=== PATIENT | male | born 1990 | race Caucasian/White ===

== ENCOUNTER 2019-10-21 09:59 | Outpatient (CLI) | payer BC, SELFPAY ==
[2019-10-21 11:31] LABS: Blood Urea Nitrogen 18 mg/dL (9-20); Calcium 9.3 mg/dL (8.4-10.2); Carbon Dioxide 28 mmol/L (22-30); Chloride 99 mmol/L (98-107); Estimated Glomerular Filt Rate > 60; Glucose 88 mg/dL (75-110); Potassium 3.8 mmol/L (3.4-5.0); Sodium 141 mmol/L (137-145)
== END 2019-10-21 10:00 | disposition home or self-care (01) ==
PROVIDERS: PCP Family Medicine
DX: I42.9 Cardiomyopathy, unspecified (principal)
CPT/HCPCS: 36415; 80048

== ENCOUNTER 2021-06-21 07:22 | Emergency (ER) | payer BC, SELFPAY ==
--- NOTE | ~2021-06-21 | CT_ITS ---
EXAMINATION: CT abdomen pelvis wo con DATE: 06/21/2021 07:52 INDICATION: Right flank pain TECHNIQUE: Computed tomography (CT) of the abdomen and pelvis was performed without intravenous contr ast. The dose-length product (DLP) was 249.36 mGy-cm. Automated exposure control and iterative recons truction technique were employed. COMPARISON: None FINDINGS: The lung bases are clear. The heart size is normal. The liver, spleen, pancreas, gallbladde r, and adrenal glands are normal. There is a 3 mm nonobstructing stone of the right mid kidney. The l eft kidney is unremarkable. There appears to be mild stranding surrounding the right ureter. A 1 mm s tone is present in the urinary bladder near the right ureterovesicular junction. No pathologically en larged abdominal or pelvic lymph nodes are identified. There is no free intraperitoneal gas or eviden ce of bowel obstruction. There is a tiny fat-containing umbilical hernia. Changes of appendectomy are noted. IMPRESSION: 1. Punctate stone in the urinary bladder with subtle fat stranding surrounding the right ureter which could reflect recent passage of right-sided stone. 2. Nonobstructing right nephrolithiasis. Reviewed, dictated and finalized at location A.
--- NOTE | 2021-06-21 07:33 | ED.ABDPAIN ---
HPI - Abdominal Pain General Chief Complaint: Back Pain/Injury Stated Complaint: R FLANK PAIN Time Seen by Provider: 06/21/21 07:31 Source: patient Mode of arrival: ambulatory Limitations: no limitations History of Present Illness HPI narrative: Patient is a 31-year-old male complaining of right flank pain, 9 out of 10, sharp, nonradiating started this morning. Patient denies any chest pain, shortness of breath, abdominal pain, nausea, vomiting, diarrhea, urinary symptoms, fever or chills Related Data Home Medications Medication Instructions Recorded Confirmed cetirizine 10 mg tablet 10 mg PO DAILY 09/24/19 06/01/21 multivitamin 1 tablet PO DAILY 09/24/19 06/01/21 metoprolol succinate 100 mg 200 mg PO DAILY tablet 10/05/20 06/01/21 tablet,extended release 24 hr olopatadine 0.6 % nasal spray 2 spray INTRANASAL Q12H 06/01/21 06/01/21 Allergies Allergy/AdvReac Type Severity Reaction Status Date / Time No Known Allergies Allergy Mild Verified 06/01/21 14:57 Review of Systems Review of Systems: All systems reviewed & are unremarkable except as noted in HPI and below Constitutional: Constitutional: Denies body ache(s), Denies chills, Denies excessive sweating, Denies fatigue, Denies fever(s), Denies headache(s), Denies lethargy, Denies malaise, Denies weakness and Denies weight loss Eyes: Eyes: Denies blurry vision, Denies change in vision and Denies loss of vision ENT: Denies dizziness, Denies ear discharge, Denies headache(s), Denies lip swelling, Denies epistaxis, Denies nasal congestion, Denies neck pain, Denies throat swelling and Denies tongue swelling Cardiovascular: Cardiovascular: Denies chest pain, Denies chest pain at rest, Denies chest pain with activity, Denies diaphoresis, Denies rapid heart rate, Denies edema, Denies irregular heart rhythm, Denies lightheadedness, Denies palpitations, Denies dyspnea and Denies dyspnea on exertion Respiratory: Respiratory: Denies chest congestion, Denies cough, Denies hemoptysis, Denies dyspnea and Denies dyspnea on exertion Gastrointestinal: Gastrointestinal: Denies abdominal pain, Denies melena, Denies hematochezia, Denies diarrhea, Denies nausea, Denies vomiting and Denies hematemesis Musculoskeletal: Musculoskeletal: Denies abnormal gait, Denies deformity, Denies joint swelling, Denies limited range of motion, Denies neck pain and Denies numbness Neurologic: Denies Abnormal speech present, Denies abnormal gait, Denies confusion, Denies dizziness, Denies headache(s), Denies focal weakness, Denies loss of vision, Denies numbness, Denies Other visual disturbances, Denies Sensory deficit (Neuro) and Denies weakness Psychiatric: Psychiatric: Denies confusion, Denies depression, Denies auditory hallucinations, Denies homicidal ideation and Denies suicidal ideation Endocrine: Endocrine: Denies cold intolerance, Denies excessive sweating, Denies fatigue, Denies heat intolerance and Denies palpitations Hematologic/Lymphatic: Hematologic/Lymphatic: Denies easy bleeding and Denies easy bruising Allergic/Immunologic: Allergic/Immunologic: Denies lip swelling, Denies throat swelling and Denies tongue swelling PMFSH Past Medical History Medical History Chest pain Essential hypertension LBBB (left bundle branch block) Migraines New onset left bundle branch block (LBBB) Family History Family History Father Diabetes mellitus Mother Family history of malignant neoplasm of breast in first degree relative Social History Social History Smoking status: Never smoker Second hand tobacco smoke exposure: No Alcohol intake: never Substance use: never Substance use type: does not use Gender identity (if verbalized by the patient): Male Exam Const: General: cooperative, healthy appearing, comfortable, well d
[2021-06-21] MEDS: SODIUM CHLORIDE 0.9% IV 1,000 ML 999 ML IV CONT (07:41)
[2021-06-21] MEDS: HYDROmorphone HCL INJ (*CRX) 1 MG/ML SYR 0.5 MG IV PUSH ×2 (07:42→08:25)
[2021-06-21] MEDS: PROMETHAZINE HCL 25 MG/ML AMPUL 12.5 MG IV PUSH (07:42)
[2021-06-21 07:47] VITALS: BP 117/76; PULSE 80; RESP 14; TEMP 36.7; O2SAT 100
[2021-06-21 07:50] LABS: Basophils Absolute Auto 0.1 K/mm3 (0.0-0.1); Basophils Percent Auto 1.4 % (0.2-1.2); Eosinophils Absolute Auto 0.3 K/mm3 (0-0.3); Eosinophils Percent Auto 3.1 % (0-4.4); Hematocrit 46.7 % (42.0-52.0); Hemoglobin 16.6 g/dL (14.0-18.0); Immature Granulocyte Absolute 0.04 K/mm3 (0.00-0.031); Immature Granulocyte Percent A 0.4 % (0-0.5); Lymphocytes Absolute Auto 4.39 K/mm3 (0.9-3.2); Lymphocytes Percent Auto 47.1 % (18.3-44.2); Mean Corpuscular HGB Conc 35.5 g/dl (32-36); Mean Corpuscular Hemoglobin 30.5 pg (26-34); Mean Corpuscular Volume 85.8 fl (80-100); Mean Platelet Volume 8.8 fl (7.4-10.4); Monocytes Percent Auto 10.9 % (2.6-8.5); Neutrophils Absolute Auto 3.5 K/mm3 (1.3-6.7); Neutrophils Percent Auto 37.1 % (45.5-73.1); Platelet Count Result 279 k/mm3 (150-375); Red Blood Count 5.44 M/mm3 (4.6-6.20); Red Cell Distribution Width 12.9 % (11.5-14.5); White Blood Count 9.3 K/mm3 (4.5-10.0)
[2021-06-21 08:36] LABS: Alanine Aminotransferase 30 U/L (4-50); Alkaline Phosphatase 60 U/L (38-126); Anion Gap 11 mmol/L (8-16); Aspartate Amino Transferase 29 U/L (17-59); Bilirubin,Total 0.9 mg/dL (0.2-1.3); Blood Urea Nitrogen 22 mg/dL (9-20); Calcium 9.2 mg/dL (8.4-10.2); Carbon Dioxide 17 mmol/L (22-30); Chloride 111 mmol/L (98-107); Estimated CRCL calculation 93 ml/min; Estimated Glomerular Filt Rate > 60; Glucose 136 mg/dL (65-110); Lipase 101 U/L (23-300); Potassium 4.4 mmol/L (3.4-5.0); Sodium 139 mmol/L (137-145)
[2021-06-21 08:45] VITALS: BP 139/83; PULSE 75; RESP 14; O2SAT 99
[2021-06-21 09:43] LABS: Add Urine Microscopic? YES; Appearance Urine Cloudy (Clear); Bacteria Urine Trace /hpf; Bilirubin Urine Negative (Negative); Blood Urine Negative (Negative); Color Urine Yellow (Yellow); Glucose Urine UA Negative (Negative); Ketones Urine Negative (Negative); Leukocyte Esterase Ur Negative LEU/UL (Negative); Mucus Urine Few /lpf; Nitrate Urine Negative (Negative); Protein Urine Negative (Negative); Urobilinogen Urine Negative mg/dL (<2.0); WBC Urine 0-3 /hpf
[2021-06-21 09:45] VITALS: BP 122/69; PULSE 76; RESP 14; O2SAT 98
[2021-06-21 09:53] LABS: Specific Grav Ur 1.031 (1.001-1.035)
[2021-06-21 10:54] VITALS: BP 115/69; PULSE 79; RESP 14; O2SAT 100
== END 2021-06-21 10:58 | disposition home or self-care (01) ==
PROVIDERS: Emergency Provider Emergency Medicine; PCP Family Medicine
DX: N20.2 Calculus of kidney with calculus of ureter (principal); I10 Essential (primary) hypertension
CPT/HCPCS: 36415; 74176; 80053; 81001; 83690; 85025; 96361; 96374; 96375; 96376; 99284; J1170; J2550; J7030

== ENCOUNTER 2022-02-13 00:58 | Emergency (ER) | payer BC, SELFPAY ==
--- NOTE | ~2022-02-13 | CT_ITS ---
EXAMINATION: CT abdomen pelvis wo con DATE: 02/13/2022 02:04 INDICATION: Right flank pain. Hematuria. Low abdominal pain. TECHNIQUE: Computed tomography (CT) of the abdomen and pelvis was performed without intravenous contr ast. Automated exposure control and iterative reconstruction technique were employed. The dose-length product was 588.72 mGy-cm. COMPARISON: CT abdomen and pelvis 06/21/2021 FINDINGS: The visualized portions of the lung bases demonstrate mild atelectasis. No pleural effusion . The heart size is normal. No pericardial effusion. The liver, gallbladder, spleen, pancreas, adrena l glands, and kidneys are normal. There is a 2 mm stone in distal right ureter. There is diverticulos is of the colon without evidence of diverticulitis. There are changes of appendectomy. There are no p athologically enlarged lymph nodes. There is no free intraperitoneal fluid. There is mild lumbar spon dylosis. IMPRESSION: 1. 2 mm stone in distal right ureter. No hydronephrosis. Reviewed, dictated and finalized at location A.
[2022-02-13 01:01] VITALS: BP 126/85; PULSE 74; RESP 16; TEMP 36.4; O2SAT 99
[2022-02-13 01:24] LABS: Basophils Absolute Auto 0.1 K/mm3 (0.0-0.1); Basophils Percent Auto 1.3 % (0.2-1.2); Eosinophils Absolute Auto 0.3 K/mm3 (0-0.3); Eosinophils Percent Auto 3.1 % (0-4.4); Hematocrit 46.8 % (42.0-52.0); Hemoglobin 16.3 g/dL (14.0-18.0); Immature Granulocyte Absolute 0.03 K/mm3 (0.00-0.031); Immature Granulocyte Percent A 0.4 % (0-0.5); Lymphocytes Percent Auto 48.5 % (18.3-44.2); Mean Corpuscular HGB Conc 34.8 g/dl (32-36); Mean Corpuscular Hemoglobin 30.1 pg (26-34); Mean Corpuscular Volume 86.3 fl (80-100); Monocytes Absolute Auto 0.7 K/mm3 (0.1-0.6); Monocytes Percent Auto 8.5 % (2.6-8.5); Neutrophils Absolute Auto 3.2 K/mm3 (1.3-6.7); Neutrophils Percent Auto 38.2 % (45.5-73.1); Platelet Count Result 247 k/mm3 (150-375); Red Blood Count 5.42 M/mm3 (4.6-6.20); Red Cell Distribution Width 12.8 % (11.5-14.5); White Blood Count 8.5 K/mm3 (4.5-10.0)
[2022-02-13 01:26] LABS: Alanine Aminotransferase 30 U/L (6-50); Albumin Level 4.3 g/dL (3.5-5.1); Alkaline Phosphatase 73 U/L (38-126); Anion Gap 8 mmol/L (8-16); Aspartate Amino Transferase 31 U/L (17-59); Bilirubin,Total 1.1 mg/dL (0.2-1.3); Blood Urea Nitrogen 22 mg/dL (9-20); Calcium 8.8 mg/dL (8.4-10.2); Carbon Dioxide 21 mmol/L (22-30); Chloride 106 mmol/L (98-107); Estimated CRCL calculation 114 ml/min; Estimated Glomerular Filt Rate > 60; Glucose 155 mg/dL (65-110); Potassium 4.1 mmol/L (3.4-5.0); Sodium 135 mmol/L (137-145)
[2022-02-13 01:28] LABS: Appearance Urine Clear (Clear); Bilirubin Urine 1+ (Negative); Blood Urine 3+ (Negative); Color Urine Yellow (Yellow); Glucose Urine UA Negative (Negative); Ketones Urine Trace mg/dL (Negative); Leukocyte Esterase Ur Negative LEU/UL (Negative); Nitrate Urine Negative (Negative); Protein Urine Trace mg/dL (Negative); Specific Grav Ur >= 1.030 (1.001-1.035); Urobilinogen Urine 0.2 mg/dL (<2.0); pH Urine 5.5 (5.0-9.0)
[2022-02-13 01:34] LABS: Bacteria Urine Trace /hpf; Mucus Urine Few /lpf; RBC Urine >75 /hpf (0-2); WBC Urine 0-3 /hpf
[2022-02-13 01:35] LABS: Add Urine Microscopic? YES
--- NOTE | 2022-02-13 02:47 | ED.ABDPAIN ---
HPI - Abdominal Pain General Chief Complaint: Abdominal Pain <ELIDIA Marr Last Filed: 02/13/22 04:13> Stated Complaint: kidney stone <ELIDIA Marr Last Filed: 02/13/22 04:13> Time Seen by Provider: 02/13/22 01:51 <ELIDIA Marr Last Filed: 02/13/22 04:13> History of Present Illness HPI narrative: Patient is a 31-year-old male with a history of kidney stones here for evaluation of right-sided flank pain and right groin pain with hematuria tonight. Patient tells me he has a history of kidney stones and that this feels very similar. Has not taken any medications for his pain. Denies nausea or vomiting, fevers or chills. <ELIDIA Marr Last Filed: 02/13/22 04:13> Related Data Home Medications: Home Medications Medication Instructions Recorded Confirmed cetirizine 10 mg tablet (Zyrtec) 10 mg PO DAILY 09/24/19 06/29/21 multivitamin 1 tablet PO DAILY 09/24/19 06/29/21 metoprolol succinate 100 mg 200 mg PO DAILY 10/05/20 06/29/21 tablet,extended release 24 hr olopatadine 0.6 % nasal spray 2 spray intranasal Q12H 06/01/21 06/29/21 <ELIDIA Marr Last Filed: 02/13/22 04:13> Allergies/Adverse Reactions: Allergies Allergy/AdvReac Type Severity Reaction Status Date / Time No Known Allergies Allergy Mild Verified 02/13/22 01:03 <ELIDIA Marr Last Filed: 02/13/22 04:13> Review of Systems Review of Systems: Gen: Denies fevers or chills Eyes: Denies eye pain or visual change ENT: Denies congestion Respiratory: Denies shortness of breath or cough CV: Denies chest pain or palpitations GI: Denies abdominal pain nausea, emesis or diarrhea reports hematuria. Denies burning, urgency, frequency Musculoskeletal: Reports right flank pain and groin pain Neuro: Denies numbness, tingling, weakness or focal weakness Skin: Denies rash Except as documented, all other systems reviewed and negative <Marisabel Wagner PA-C - Last Filed: 02/13/22 04:13> [facility] Past Medical History Medical History: Medical History Chest pain Essential hypertension LBBB (left bundle branch block) Migraines New onset left bundle branch block (LBBB) <Marisabel Wagner PA-C - Last Filed: 02/13/22 04:13> Family History Family History: Family History Father Diabetes mellitus Mother Family history of malignant neoplasm of breast in first degree relative <Marisabel Wagner PA-C - Last Filed: 02/13/22 04:13> Social History Social History: Social History (Updated 06/29/21 @ 14:57 by Lynette Jo MA) Smoking status: Never smoker Second hand tobacco smoke exposure: No Alcohol intake: never Substance use: never Substance use type: does not use Gender identity (if verbalized by the patient): Male <Mraisabel Wagner PA-C - Last Filed: 02/13/22 04:13> Exam Narrative: APPEARANCE: Well appearing, no pain in distress, well-nourished. Head: Normocephalic and atraumatic. EYES: PERRLA/EOMI, conjunctivae clear NOSE: No nasal drainage EARS: External ear normal in appearance THROAT: Oropharynx is clear. Mucous membranes are moist. NECK: Supple. No adenopathy, no masses. RESPIRATORY: Airway patent, respirations nonlabored. Clear to auscultation bilaterally, no rales, rhonchi, wheezing. CARDIOVASCULAR: Regular rate and rhythm without murmurs, rubs, or gallops. ABDOMINAL: Normoactive bowel sounds. Soft, nontender, nondistended. No rebound tenderness or guarding. MUSCULOSKELETAL: Extremities are warm and well-perfused. Moves all extremities well. No edema. NEURO: Normal speech. No focal neurologic deficits. SKIN: Skin is warm and dry. No rashes. PSYCHIATRIC: Normal affect/mood. <Marisabel Wagner PA-C - Last Filed: 02/13/22 04:13> Course [employer]ER/PA Physician
[2022-02-13] MEDS: KETOROLAC 30 MG/ML VIAL (*BKC) IM (03:02)
[2022-02-13 03:53] VITALS: BP 125/86; PULSE 72; RESP 18; O2SAT 100
== END 2022-02-13 03:54 | disposition home or self-care (01) ==
PROVIDERS: Emergency Provider Emergency Medicine; PCP Family Medicine
DX: N20.0 Calculus of kidney (principal); I10 Essential (primary) hypertension
CPT/HCPCS: 36415; 74176; 80053; 81001; 85025; 96372; 99284; J1885

== ENCOUNTER 2022-02-26 07:43 | Day surgery (SDC) | payer BC, SELFPAY ==
[2022-02-26] VITALS (16 sets, daily range): BP systolic 104–153; BP diastolic 54–91; PULSE 76–110; RESP 14–23; TEMP 36.6–36.9; O2SAT 96–100
--- NOTE | ~2022-02-26 | XR_ITS ---
EXAMINATION: XR retrograde pyelo w/stent RT DATE: 02/26/2022 13:00 CDT INDICATION: STONE RIGHT STONE EXT/RETRO/STENT PLACEMENT . TECHNIQUE: 17 fluoroscopic images of the abdomen and pelvis were obtained during right stone extracti on, retrograde pyelography, and stent placement performed by the surgeon. I was not present in the op erating room. Fluoroscopy exposure time was 24.3 seconds. Cumulative dose was 0.77191 mGy2. COMPARISON: CT abdomen pelvis 02/26/2022. FINDINGS: Punctate 3 mm calcification in the right pelvis may reflect obstructing stone. Contrast fills a mildl y dilated right collecting system. The inferior portion of a ureteral stent is present in the final i mage, in good position. IMPRESSION: Fluoroscopic documentation of stone extraction, retrograde pyelography, and stent placement. Please r efer to the operative note for complete procedural details. Reviewed, dictated and finalized at location K. IMPRESSION: Fluoroscopic documentation of stone extraction, retrograde pyelography, and dorene nt placement. Please refer to the operative note for complete procedural detail s.
--- NOTE | ~2022-02-26 | CT_ITS ---
EXAMINATION: CT abdomen pelvis wo con DATE: 02/26/2022 08:11 INDICATION: Right flank pain TECHNIQUE: Computed tomography (CT) of the abdomen and pelvis was performed without intravenous contr ast. The dose-length product (DLP) was 234.64 mGy-cm. Automated exposure control and iterative recons truction technique were employed. COMPARISON: 02/13/2022 FINDINGS: The lung bases are clear. The heart size is normal. The liver, spleen, pancreas, gallbladde r, and adrenal glands are normal. There is a 3 mm stone at the right ureterovesicular junction. The k idneys are unremarkable. No pathologically enlarged abdominal or pelvic lymph nodes are identified. T here is no free intraperitoneal gas or evidence of bowel obstruction. Colonic diverticulosis is prese nt without evidence of diverticulitis. There is a small umbilical hernia containing fat IMPRESSION: 1. 3 mm stone at the right ureterovesicular junction. Reviewed, dictated and finalized at location B.
[2022-02-26 07:59] LABS: Basophils Absolute Auto 0.1 K/mm3 (0.0-0.1); Basophils Percent Auto 1.5 % (0.2-1.2); Eosinophils Absolute Auto 0.2 K/mm3 (0-0.3); Eosinophils Percent Auto 2.7 % (0-4.4); Hematocrit 48.2 % (42.0-52.0); Hemoglobin 17.5 g/dL (14.0-18.0); Immature Granulocyte Absolute 0.03 K/mm3 (0.00-0.031); Immature Granulocyte Percent A 0.3 % (0-0.5); Lymphocytes Absolute Auto 4.09 K/mm3 (0.9-3.2); Lymphocytes Percent Auto 46.5 % (18.3-44.2); Mean Corpuscular HGB Conc 36.3 g/dl (32-36); Mean Corpuscular Hemoglobin 30.6 pg (26-34); Mean Corpuscular Volume 84.4 fl (80-100); Mean Platelet Volume 8.6 fl (7.4-10.4); Monocytes Absolute Auto 0.9 K/mm3 (0.1-0.6); Monocytes Percent Auto 10.3 % (2.6-8.5); Neutrophils Absolute Auto 3.4 K/mm3 (1.3-6.7); Neutrophils Percent Auto 38.7 % (45.5-73.1); Platelet Count Result 277 k/mm3 (150-375); Red Blood Count 5.71 M/mm3 (4.6-6.20); Red Cell Distribution Width 12.6 % (11.5-14.5); White Blood Count 8.8 K/mm3 (4.5-10.0)
[2022-02-26 08:00] LABS: Add Urine Microscopic? YES; Appearance Urine Slightly Cloudy (Clear); Bilirubin Urine Negative (Negative); Blood Urine 3+ (Negative); Color Urine Yellow (Yellow); Glucose Urine UA Negative (Negative); Ketones Urine Negative (Negative); Leukocyte Esterase Ur Negative LEU/UL (Negative); Nitrate Urine Negative (Negative); Protein Urine Negative (Negative); Urobilinogen Urine 0.2 mg/dL (<2.0); pH Urine 5.5 (5.0-9.0)
[2022-02-26 08:08] LABS: Bacteria Urine Trace /hpf; RBC Urine 21-50 /hpf (0-2); WBC Urine 0-3 /hpf
[2022-02-26] MEDS: MORPHINE SULFATE (*CRX) 4 MG/ML INJ IV PUSH ×2 (08:34→09:32)
[2022-02-26 08:39] LABS: Alanine Aminotransferase 38 U/L (6-50); Albumin Level 4.9 g/dL (3.5-5.1); Alkaline Phosphatase 62 U/L (38-126); Anion Gap 9 mmol/L (8-16); Aspartate Amino Transferase 48 U/L (17-59); Bilirubin,Total 1.9 mg/dL (0.2-1.3); Blood Urea Nitrogen 19 mg/dL (9-20); Calcium 8.7 mg/dL (8.4-10.2); Carbon Dioxide 22 mmol/L (22-30); Chloride 103 mmol/L (98-107); Estimated Glomerular Filt Rate > 60; Glucose 133 mg/dL (65-110); Potassium 4.5 mmol/L (3.4-5.0); Sodium 134 mmol/L (137-145)
[2022-02-26] MEDS: ONDANSETRON INJ 4 MG/2 ML VIAL IV PUSH ×2 (08:58→15:34)
--- NOTE | 2022-02-26 09:03 | ED.BACK ---
HPI - Back Pain/Injury General Chief Complaint: Back Pain/Injury Stated Complaint: right flank pain Time Seen by Provider: 02/26/22 07:50 History of Present Illness HPI Narrative: 31-year-old male with history of kidney stones presents stating that he feels like he is having another kidney stone, he is endorsing right flank pain radiating to the lower abdomen that started several hours ago, he has been feeling nauseous. Denies any pain on urination but states that he has been coming more frequently, had a recent visit here a week ago for the same sort of symptoms. No fevers or chills. Related Data Home Medications Medication Instructions Recorded Confirmed cetirizine 10 mg tablet (Zyrtec) 10 mg PO DAILY 09/24/19 06/29/21 multivitamin 1 tablet PO DAILY 09/24/19 06/29/21 metoprolol succinate 100 mg 200 mg PO DAILY 10/05/20 06/29/21 tablet,extended release 24 hr olopatadine 0.6 % nasal spray 2 spray intranasal Q12H 06/01/21 06/29/21 Allergies Allergy/AdvReac Type Severity Reaction Status Date / Time No Known Allergies Allergy Mild Verified 02/13/22 01:03 Review of Systems Review of Systems: CONST: No fever. HEENT: No sore throat C/V: No chest pain RESP: No cough GI: Nausea : Increased frequency BACK: Right flank pain M/S: No joint pain. SKIN: No rash. NEURO: [No headache or focal numbness or weakness] PSYCH: [No depression] [facility] Past Medical History Medical History Chest pain Dilated cardiomyopathy ef 35-40% Essential hypertension LBBB (left bundle branch block) Migraines New onset left bundle branch block (LBBB) Family History Family History Father Diabetes mellitus Mother Family history of malignant neoplasm of breast in first degree relative Social History Social History Smoking status: Never smoker Second hand tobacco smoke exposure: No Alcohol intake: never Substance use: never Substance use type: does not use Gender identity (if verbalized by the patient): Male Exam Narrative: EXAMINATION OF ORGAN SYSTEMS/BODY AREAS: Constitutional: Vital signs per nursing GENERAL: Continuously moaning in pain HEAD: Normal with no signs of head trauma. EYES: EOMI, conjunctiva normal ENT: Hearing grossly intact LUNGS: Nonlabored breathing. HEART: [Regular rate and rhythm] ABD: [Soft], right flank tenderness EXT: Normal range of motion SKIN: [No rashes or lesions.] NEURO: [Alert and oriented x 3. No gross focal sensory or strength deficits.] PSYCH: Normal affect Course Vital Signs Vital signs: Vital Signs Temperature 97.9 F 02/26/22 07:49 Pulse Rate 102 H 02/26/22 07:49 Respiratory Rate 14 02/26/22 07:49 Blood Pressure 153/91 H 02/26/22 07:49 Pulse Oximetry 99 02/26/22 07:49 Oxygen Delivery Room Air 02/26/22 07:49 Temperature 98.5 F 02/26/22 13:39 Pulse Rate 94 02/26/22 13:50 Respiratory Rate 19 02/26/22 13:50 Blood Pressure 113/64 02/26/22 13:45 Pulse Oximetry 100 02/26/22 13:50 Oxygen Delivery Simple Face Mask 02/26/22 13:50 Oxygen Flow Rate 10 02/26/22 13:50 MDM - Back Pain/Injury MDM Narrative Medical decision making narrative: 31-year-old male presenting with right flank pain similar to his usual kidney stone, vital signs stable, exam does show right flank tenderness, I suspect likely nephrolithiasis versus UTI, UA does show hematuria, and CT does confirm 3 mm stone in the UVJ. Patient has had multiple rounds of IV pain medication and is still continuing to moan, called urology Dr. Chirinos who was amenable to taking the patient to the OR for definitive treatment, patient is agreeable to this plan. Patient going to the OR. Lab Data Result diagrams: 02/26/22 07:53 02/26/22 08:19 Labs: Lab Results 02/26/22 02/26/22 02/26/22 Range/Units
[2022-02-26] MEDS: LACTATED RINGERS 1,000 ML 999 ML IV CONT (09:31)
--- NOTE | 2022-02-26 11:23 | WPDANESEPPF ---
Anes - Initial Pre Proc Eval Procedure: Operation Date: 02/26/22 12:30 Proposed Procedures p Cystoscopy,Right Ureteroscopy,Right Retrograde Pyelogram,Right Stone Extraction,Possible Holmium Laser,Possible Stent Placement - Devon Chirinos MD Date/Time: 02/26/22 11:23 Surgeon: Devon Chirinos MD Pre Op Diagnosis: right flank pain Patient Data Age: 31 Gender: M Height: Weight: 90.7 kg Last Vital Signs Temp 36.6 C 02/26/22 07:49 Pulse 102 H 02/26/22 07:49 Resp 14 02/26/22 07:49 BP 153/91 H 02/26/22 07:49 Pulse Ox 99 02/26/22 07:49 O2 Del Method Room Air 02/26/22 07:49 Allergies Allergy/AdvReac Type Severity Reaction Status Date / Time No Known Allergies Allergy Mild Verified 02/13/22 01:03 Home Medications Medication Instructions Recorded Confirmed Type cetirizine 10 mg tablet (Zyrtec) 10 mg PO DAILY 09/24/19 06/29/21 History multivitamin 1 tablet PO DAILY 09/24/19 06/29/21 History metoprolol succinate 100 mg 200 mg PO DAILY 10/05/20 06/29/21 History tablet,extended release 24 hr spironolactone 25 mg tablet 12.5 mg PO DAILY #30 tabs 10/05/20 06/29/21 Rx olopatadine 0.6 % nasal spray 2 spray intranasal Q12H 06/01/21 06/29/21 History losartan 25 mg tablet 25 mg PO DAILY #90 tabs 09/11/21 Rx rizatriptan 10 mg tablet See Rx Instructions PO .COMPLEX #9 10/22/21 Rx tabs Laboratory Tests 02/26/22 02/26/22 02/26/22 07:53 07:53 08:19 WBC 8.8 K/mm3 K/mm3 (4.5-10.0) RBC 5.71 M/mm3 M/mm3 (4.6-6.20) Hgb 17.5 g/dL g/dL (14.0-18.0) Hct 48.2 % % (42.0-52.0) MCV 84.4 fl fl (80-100) MCH 30.6 pg pg (26-34) MCHC 36.3 g/dl H g/dl (32-36) RDW 12.6 % % (11.5-14.5) Plt Count 277 k/mm3 k/mm3 (150-375) MPV 8.6 fl fl (7.4-10.4) Immature Gran % (Auto) 0.3 % % (0-0.5) Neut % (Auto) 38.7 % L % (45.5-73.1) Lymph % (Auto) 46.5 % H % (18.3-44.2) [place] % (Auto) 10.3 % H % (2.6-8.5) Eos % (Auto) 2.7 % % (0-4.4) Baso % (Auto) 1.5 % H % (0.2-1.2) Lymph # (Auto) 4.09 K/mm3 H K/mm3 (0.9-3.2) [place] # (Auto) 0.9 K/mm3 H K/mm3 (0.1-0.6) Eos # (Auto) 0.2 K/mm3 K/mm3 (0-0.3) Baso # (Auto) 0.1 K/mm3 K/mm3 (0.0-0.1) Abs Immat Gran (auto) 0.03 K/mm3 K/mm3 (0.00-0.031) Absolute Neuts (auto) 3.4 K/mm3 K/mm3 (1.3-6.7) Absolute Nucleated RBC 0.0 K/mm3 K/mm3 (0.0-0.012) Nucleated RBC % 0.0 % % (0.0-0.2) Sodium 134 mmol/L L mmol/L (137-145) Potassium 4.5 mmol/L mmol/L (3.4-5.0) Chloride 103 mmol/L mmol/L (98-107) Carbon Dioxide 22 mmol/L mmol/L (22-30) Anion Gap 9 mmol/L mmol/L (8-16) BUN 19 mg/dL mg/dL (9-20) Creatinine 1.10 mg/dL mg/dL (0.7-1.3) Estim Creat Clear Calc Not Reportable Estimated GFR > 60 (59 - ) Glucose 133 mg/dL H mg/dL (65-110) Calcium 8.7 mg/dL mg/dL (8.4-10.2) Total Bilirubin 1.9 mg/dL H mg/dL (0.2-1.3) AST 48 U/L U/L (17-59) ALT 38 U/L U/L (6-50) Alkaline Phosphatase 62 U/L U/L (38-126) Total Protein 9.0 g/dL H g/dL (6.3-8.2) Albumin 4.9 g/dL g/dL (3.5-5.1) Urine Color Yellow (Yellow) Urine Appearance Slightly cloudy (Clear) Urine pH 5.5 (5.0-9.0) Ur Specific [place] 1.010 (1.001-1.035) Urine Protein Negative mg/dL mg/dL (Negative) Urine Glucose (UA) Negative mg/dL mg/dL (Negative) Urine Ketones Negative mg/dL mg/dL (Negative) Ur Blood (Man) 3+ H (Negative) Urine Nitrate Negative (Negative) Urine Bilirubin Negative (Negative) Urine Urobilinogen 0.2 mg/dL mg/dL (<2.0)
[2022-02-26] MEDS: LACTATED RINGERS 1,000 ML 30 ML IV CONT (11:46)
[2022-02-26] MEDS: fentaNYL CITRATE INJ (*CRX) 100 MCG/2 ML VIAL 50 MCG IV PUSH ×2 (11:48→12:13)
--- NOTE | 2022-02-26 12:57 | PM.IMHP ---
H&P: HPI History of Present Illness Date/Time: 02/26/22 12:57 Chief Complaint: 3 mm obstructing right UVJ calculus with persistent renal colic Narrative: 31-year-old male who has had a 2nd trip to the emergency room secondary to a 3 mm right UVJ calculus. He is having pain that is not controllable along with frequency and urgency and right flank pain. Patient's urine is not infected and he has a normal white count. Denies any fever. Have discussed option of conservative management still but given his frequent trips to the emergency room along with persistent pain which is difficult to control will proceed with ureteroscopy with stone extraction today. Review of Systems Review of Systems: All systems reviewed & are unremarkable except as noted in HPI and below PMFSH Past Medical History Medical History Chest pain Dilated cardiomyopathy ef 35-40% Essential hypertension LBBB (left bundle branch block) Migraines New onset left bundle branch block (LBBB) Family History Family History Father Diabetes mellitus Mother Family history of malignant neoplasm of breast in first degree relative Social History Social History (Updated 06/29/21 @ 14:57 by Lynette Jo MA) Smoking status: Never smoker Second hand tobacco smoke exposure: No Alcohol intake: never Substance use: never Substance use type: does not use Gender identity (if verbalized by the patient): Male Meds Home Medications and Allergies Home Medications Medication Instructions Recorded Confirmed Type cetirizine 10 mg tablet (Zyrtec) 10 mg PO DAILY 09/24/19 06/29/21 History multivitamin 1 tablet PO DAILY 09/24/19 06/29/21 History metoprolol succinate 100 mg 200 mg PO DAILY 10/05/20 06/29/21 History tablet,extended release 24 hr spironolactone 25 mg tablet 12.5 mg PO DAILY #30 tabs 10/05/20 06/29/21 Rx olopatadine 0.6 % nasal spray 2 spray intranasal Q12H 06/01/21 06/29/21 History losartan 25 mg tablet 25 mg PO DAILY #90 tabs 09/11/21 Rx rizatriptan 10 mg tablet See Rx Instructions PO .COMPLEX #9 10/22/21 Rx tabs Allergies Allergy/AdvReac Type Severity Reaction Status Date / Time No Known Allergies Allergy Mild Verified 02/13/22 01:03 Vital Signs Vital Signs - 24 hr 02/26/22 07:49 02/26/22 08:50 02/26/22 09:50 Temperature 36.6 C Pulse Rate 102 H 97 76 Respiratory Rate 14 14 14 Blood Pressure 153/91 H 139/90 134/89 Pulse Oximetry 99 99 99 Oxygen Delivery Room Air 02/26/22 10:50 02/26/22 11:55 Temperature 36.6 C Pulse Rate 79 87 Respiratory Rate 19 18 Blood Pressure 124/89 138/66 Pulse Oximetry 99 100 Oxygen Delivery Room Air Exam Const: General: cooperative; No comfortable Chest: Chest palpation & inspection: normal inspection of the chest Cardio: Rate: regular rate Rhythm: regular rhythm GI: Inspection: normal to inspection H&P: Results Labs Labs: Short CBC 02/26/22 Range/Units 07:53 WBC 8.8 (4.5-10.0) K/mm3 Hgb 17.5 (14.0-18.0) g/dL Hct 48.2 (42.0-52.0) % Plt Count 277 (150-375) k/mm3 BMP 02/26/22 08:19 Sodium 134 L Potassium 4.5 Chloride 103 Carbon Dioxide 22 BUN 19 Creatinine 1.10 Glucose 133 H Calcium 8.7 Liver Function 02/26/22 Range/Units 08:19 Total Bilirubin 1.9 H (0.2-1.3) mg/dL AST 48 (17-59) U/L ALT 38 (6-50) U/L Alkaline Phosphatase 62 (38-126) U/L Albumin 4.9 (3.5-5.1) g/dL Urine 02/26/22 Range/Units 07:53 Urine Color Yellow (Yellow) Urine Appearance Slightly cloudy (Clear) Urine pH 5.5 (5.0-9.0) Ur Specific [place] 1.010 (1.001-1.035) Urine Protein Negative (Negative) mg/dL Urine Glucose (UA) Negative (Negative) mg/dL Assessment and Plan Assessment and plan (1) Ureteral calculus, right: Code(s): N20.1 - Calculus of ureter St
--- NOTE | 2022-02-26 12:59 | WPDHPUPDATE1 ---
History and Physical Update Update Date/Time: 02/26/22 12:59 History and Physical has been reviewed, including an updated exam of the patient. There are NO changes in the patient's condition. Risks, benefits, and alternatives have been discussed and questions answered. Patient agrees to proceed with procedure.
[2022-02-26] MEDS: ceFAZolin 2 GM/D5W 50 ML 2 GM/50 ML BAG IVPB (13:03)
[2022-02-26] MEDS: LIDOCAINE HCL 2% GEL UROJET 10 ML PKG MUCOUS MEM (13:31)
--- NOTE | 2022-02-26 13:36 | W.PM.PROC2 ---
Procedure Note - Detailed Date of Procedure 02/26/22 Pre-op Diagnosis right flank pain, right ureteral calculus Post-op Diagnosis Same Procedure Performed cystoscopy, right retrograde pyelogram, right ureteroscopy with stone extraction, right ureteral stent placement 4.8 [place] contour Surgeon Devon Chirinos MD Anesthesia General Description of Procedure patient is taken to the operative suite and correctly identified. Once anesthesia was obtained he was placed in dorsal lithotomy position and prepped and draped usual sterile fashion. Twenty-two [place] scope inserted in the bladder and direct vision. There were no urethral strictures. Bladder itself has no evidence of tumors. Both ureteral orifices normal anatomic position. Guidewire was inserted into the right ureteral orifice and the ureter was dilated using an 8/10 dilator. A rigid ureteral scope was then inserted. The stone was visualized. Using escape basket we retrieved the stone its entirety and sent it for analysis. Reinspection revealed no residual ureteral stones. Pyelogram was then performed confirm placement of the stent. 4.8 [place] contour stent was then placed with the proximal end coiled in the renal pelvis and the distal in the bladder. 2% viscous lidocaine was inserted into the urethra. Patient is taken recovery stable condition. He will be discharged home and follow-up in a week's time for stent removal. He is to call for that appointment. Urine Output 80 Drains Yes Packing No Pathology Yes Complications No immediate complications Condition Stable Disposition PACU
[2022-02-26] MEDS: oxyCODONE HCL (*CRX) 5 MG TAB IR PO (15:10)
[2022-02-26] MEDS: SCOPOLAMINE 1.5 MG PATCH TRANSDERM (15:58)
--- NOTE | 2022-02-26 16:14 | SUR.PHASEII ---
Patient's IV was out when he physically threw up. RN got an order for a scop patch from anesthesia before sending patient home.
== END 2022-02-26 16:00 | disposition home or self-care (01) ==
LOC: ANHED 11:11 → ANHSURGERY 11:23
PROVIDERS: Emergency Provider Emergency Medicine; PCP Family Medicine; Visit Provider Urology
PROC: (CPT 52352; principal; 2022-02-26 12:30)
DX: N20.1 Calculus of ureter (principal); I42.0 Dilated cardiomyopathy; I10 Essential (primary) hypertension; I44.7 Left bundle-branch block, unspecified; E66.9 Obesity, unspecified; Z68.27 Body mass index [BMI] 27.0-27.9, adult
CPT/HCPCS: 52332; 52352; 36415; 74176; 74420; 80053; 81001; 82365; 85025; 88300; 96361; 96374; 96375; 96376; 99285; A9270; C1769; C2617; J0690; J1100; J2250; J2270; J2405; J2704; J3010; J7120

== ENCOUNTER 2022-09-21 19:05 | Emergency (ER) | payer BC, SELFPAY ==
--- NOTE | 2022-09-21 19:14 | ED.URI ---
HPI - URI/Sore Throat General Chief Complaint: Upper Respiratory Infection Stated Complaint: sore throat,swollen glands Time Seen by Provider: 09/21/22 19:28 Source: patient, RN notes reviewed and old records reviewed Mode of arrival: ambulatory Limitations: no limitations History of Present Illness HPI Narrative: 32-year-old male presents to the [facility] with complaints of swollen glands and a sore throat. Recently diagnosed with strep, finished his 10 days course of amoxicillin 2 days ago. States that his throat got really bad today. Denies fevers. Related Data Home Medications Medication Instructions Recorded Confirmed cetirizine 10 mg tablet (Zyrtec) 10 mg PO DAILY 09/24/19 09/21/22 multivitamin 1 tablet PO DAILY 09/24/19 09/21/22 metoprolol succinate 100 mg 200 mg PO DAILY 10/05/20 09/21/22 tablet,extended release 24 hr olopatadine 0.6 % nasal spray 2 spray intranasal Q12H 06/01/21 09/21/22 Allergies Allergy/AdvReac Type Severity Reaction Status Date / Time No Known Allergies Allergy Mild Verified 09/21/22 19:16 Review of Systems Review of Systems: All systems reviewed & are unremarkable except as noted in HPI and below Constitutional: Constitutional: Reports no additional constitutional complaints Eyes: Eyes: Reports no additional eye complaints ENT: Reports as per HPI and Reports sore throat Cardiovascular: Cardiovascular: Reports no additional cardiovascular complaints, Denies chest pain and Denies dyspnea Respiratory: Respiratory: Reports no additional respiratory complaints, Denies chest congestion, Denies cough and Denies dyspnea Gastrointestinal: Gastrointestinal: Reports no additional gastrointestinal complaints, Denies abdominal pain, Denies nausea and Denies vomiting Musculoskeletal: Musculoskeletal: Reports no additional musculoskeletal complaints Integumentary/Breasts: Skin/Breast: Reports system reviewed and no additional complaints, except as docu Neurologic: Reports system reviewed and no additional complaints, except as documented Psychiatric: Psychiatric: Reports no additional psychiatric complaints Allergic/Immunologic: Allergic/Immunologic: Reports no additional allergic/immunologic complaints PMFSH Past Medical History Medical History Chest pain Dilated cardiomyopathy ef 35-40% Essential hypertension LBBB (left bundle branch block) Migraines New onset left bundle branch block (LBBB) Family History Family History Father Diabetes mellitus Mother Family history of malignant neoplasm of breast in first degree relative Social History Social History Smoking status: Never smoker Second hand tobacco smoke exposure: No Alcohol intake: never Substance use: never Substance use type: does not use Living arrangements: with family Occupation/Education: occupation Gender identity (if verbalized by the patient): Male Comments At the time of my signature, I reviewed and agree with the nursing past medical, surgical, social, and family history. There is no relevant family history pertinent to the patient complaint. Exam Const: General: cooperative, healthy appearing, comfortable, no acute distress, well developed, alert and well nourished Nutritional Appearance: well nourished Orientation/consciousness: patient oriented x3 Limitations: no limitations HENMT: Head: normal to inspection Ears: hearing grossly normal bilaterally and external ears normal Face/Nose/Sinus: Normal external nose present, Normal nares present, Normal nasal mucous membranes and turbinates present and normal facial exam Face and sinus: normal facial exam Mouth: Yes Normal oral and palatal mucosa present, Yes lip normal and Yes moist mucous membranes Throat: posterior oropharynx normal, uvula midline and abnormal tonsil bilater
[2022-09-21 19:16] VITALS: BP 113/68; PULSE 91; RESP 16; TEMP 37.6; O2SAT 100
== END 2022-09-21 19:38 | disposition home or self-care (01) ==
PROVIDERS: Emergency Provider Nurse Practitioner; PCP Family Medicine
DX: J02.0 Streptococcal pharyngitis (principal); I10 Essential (primary) hypertension
CPT/HCPCS: 87880; 99213; G0463

== ENCOUNTER 2023-12-04 15:56 | Outpatient (CLI) | payer OTHER, SELFPAY ==
--- NOTE | ~2023-12-04 | XR_ITS ---
EXAMINATION: XR shoulder LT min 2V DATE: 12/04/2023 16:16 INDICATION: Left shoulder pain and limited range of motion TECHNIQUE: AP internally and externally rotated, AP oblique externally rotated and transscapular Y vi ews of the left shoulder were obtained. COMPARISON: None FINDINGS: Normal alignment. No fracture. Glenohumeral joint is normal. Mild acromioclavicular osteoarthritis w ith suggestion of some subarticular cystlike change at the lateral left clavicle. Soft tissues are un remarkable. IMPRESSION: Mild left acromioclavicular osteoarthritis. Reviewed, dictated and finalized at location B.
== END 2023-12-04 15:57 ==
LOC: MICIMG 15:58
PROVIDERS: PCP Family Medicine; Visit Provider Physician Assistant Medical
DX: M19.012 Primary osteoarthritis, left shoulder (principal)
CPT/HCPCS: 73030

== ENCOUNTER 2024-07-04 10:30 | Emergency (ER) | payer OTHER, SELFPAY ==
[2024-07-04 10:38] VITALS: BP 118/78; PULSE 88; RESP 16; TEMP 37.9; O2SAT 98
--- NOTE | 2024-07-04 11:03 | ED_ITS ---
HPI - URI/Sore Throat General Chief Complaint: Upper Respiratory Infection Stated Complaint: Sinus Infection Symptoms Time Seen by Provider: 07/04/24 10:41 Source: patient and RN notes reviewed Mode of arrival: ambulatory Limitations: no limitations History of Present Illness HPI Narrative: Patient presents today with a 6 day history of productive, postnasal drip, congestion, chest congestion, 3 day history of subjective fever and body aches with occasional shortness of breath, and 2 day history of dizziness. He has been trying DayQuil, ibuprofen, and Tylenol with some mild relief. No history of asthma or COPD. He is a nonsmoker. Patient's symptoms started when he was out of town in [place]. He has not yet received his flu shot this season. Related Data Home Medications Medication Instructions Recorded Confirmed cetirizine 10 mg tablet (Zyrtec) 10 mg PO DAILY 09/24/19 07/04/24 metoprolol succinate 100 mg 200 mg PO DAILY 10/05/20 07/04/24 tablet,extended release 24 hr rizatriptan 10 mg disintegrating 10 mg translingual DIRECTED 12/04/23 07/04/24 tablet Allergies Allergy/AdvReac Type Severity Reaction Status Date / Time No Known Allergies Allergy Mild Verified 07/04/24 10:39 Review of Systems Review of Systems: CONSTITUTIONAL: + body aches, fever EYES: Denies visual changes, redness, or discharge. ENT: Denies rhinorrhea, sore throat, or otalgia.+ congestion, postnasal drip CARDIOVASCULAR: Denies chest pain, palpitations, or edema. RESPIRATORY: + cough, shortness of breath GASTROINTESTINAL: Denies abdominal pain, nausea, vomiting, or diarrhea. GENITOURINARY: Denies dysuria or hematuria. SKIN: Denies rash, itching, or wounds. MUSCULOSKELETAL: Denies back pain, joint pain, or myalgia. NEUROLOGIC: Denies headache, numbness, tingling, or weakness.+ dizziness PSYCH: Denies depression or anxiety. [facility] Past Medical History Medical History Chest pain Dilated cardiomyopathy ef 35-40% Essential hypertension Irritable bowel syndrome with diarrhea LBBB (left bundle branch block) Migraines New onset left bundle branch block (LBBB) Family History Family History Father Diabetes mellitus Mother Family history of malignant neoplasm of breast in first degree relative Social History Social History (Reviewed 07/04/24 @ 11:06 by Raina Muro, [facility], ) Social History: Smoking status: Never smoker Second hand tobacco smoke exposure: No Alcohol intake: never Substance use: never Substance use type: does not use Lack of Transportation: No Lack of Food: Never True Current Housing: I Have Housing Concerned About Future Housing: No Difficulty Paying Gas/Electric Bills: No Difficulty Paying for Meds: No Currently Unemployed: No Education: Decline to Answer Difficulty w/ Childcare or Family Care: No Living arrangements: with family Occupation/Education: occupation Gender identity (if verbalized by the patient): Male Sexual Orientation (if Verbalized by the Patient): Straight or Heterosexual Comments At time of signature, I have reviewed and agree with nursing past medical, surgical, social and family history unless otherwise noted. Please see nursing chart for further information. There is no relevant family history pertinent to the presenting complaint Exam Narrative: GENERAL: Well-appearing, well-nourished, and in no acute distress. HEAD: Normocephalic, atraumatic. EYES: EOMI. No redness or drainage. Conjunctivae normal. ENT: Mucous membranes pink and moist. Nares clear. No rhinorrhea. TMs normal bilaterally. Throat normal. Uvula midline. NECK: Normal AROM. Supple. No lymphadenopathy. CHEST: No respiratory distress. Clear to auscultation. HEART: Regular rate and rhythm. No murmur appreciated. EXTREMITIES: Normal range of motion. No edema. SKIN: Warm, dry, no rash. Capillary refill normal. Normal skin turgor. NEURO: No focal deficits. Alert and oriented x3. Gait steady. PSYCH: Normal affect. No signs of depression or anxiety. Course Course Level of Care: Express Care Visit Vital Signs Vital signs: Vital Signs Temperature 100.3 F H 07/04/24 10:38 Pulse Rate 88 07/04/24 10:38 Respiratory Rate 16 07/04/24 10:38 Blood Pressure 118/78 07/04/24 10:38 Pulse Oximetry 98 07/04/24 10:38 Temperature 100.3 F H 07/04/24 10:38 Pulse Rate 88 07/04/24 10:38 Respiratory Rate 16 07/04/24 10:38 Blood Pressure 118/78 07/04/24 10:38 Pulse Oximetry 98 07/04/24 10:38 Reviewed MDM - URI/Sore Throat MDM Narrative Medical decision making narrative: Influenza a positive. Patient is out of the window for Tamiflu. He is nontoxic-appearing. Continue OTC medications. Anticipatory guidance given. ED precautions given. Differential Diagnosis Differential diagnosis: Likely upper respiratory infection, sinusitis, viral infection, bronchitis, influenza and other (COVID) Lab Data Attestation: I reviewed the patient's lab results. Lab results narrative: Influenza a positive, B negative, COVID negative Critical Care Time Critical Care Time Critical Care Time: No Discharge Plan Discharge Clinical Impression: Influenza A Patient Disposition: Home, Self-Care Condition: Stable Instructions: Influenza (DC) Additional Instructions: You have tested positive for influenza A. Continue [id number] medication for symptoms. Recommend considering Mucinex for your cough and chest congestion. Follow-up with your PCP in 3-5 days if symptoms are not starting to improve. Go to the ER immediately if symptoms worsen. Prescriptions: No Action metoprolol succinate 100 mg tablet extended release 24 hr 200 mg PO DAILY spironolactone 25 mg tablet 12.5 mg PO DAILY Qty: 30 0RF Emgality Pen 120 mg/mL pen injector 120 mg subcut MONTHLY Qty: 1 0RF cetirizine [Zyrtec] 10 mg tablet 10 mg PO DAILY rizatriptan 10 mg tablet,disintegrating 10 mg translingual DIRECTED cholestyramine-aspartame [Cholestyramine Light] 4 gram powder in packet 4 g PO DAILY Qty: 180 1RF Rx Instructions: administer w/meal; avoid other meds within 1hr before or 4-6hr after dose escitalopram oxalate 20 mg tablet 20 mg PO DAILY Qty: 90 1RF losartan 25 mg tablet 25 mg PO DAILY Qty: 90 2RF Follow-up/Referrals: Chad Farah MD [Primary Care Provider] - Stand Alone Forms: Work/School Release IP Time of Disposition: 11:08
[2024-07-04 11:10] LABS: EDCOVIDSCREEN Negative (Negative); EDINFLUASCREEN Positive (Negative); EDINFLUBSCREEN Negative (Negative)
== END 2024-07-04 11:10 | disposition home or self-care (01) ==
PROVIDERS: Emergency Provider Nurse Practitioner; PCP Family Medicine
DX: J10.1 Influenza due to other identified influenza virus with other respiratory manifestations (principal); Z20.822 Contact with and (suspected) exposure to COVID-19; I10 Essential (primary) hypertension
CPT/HCPCS: 87426; 87804; 99212; G0463